=== PATIENT | female | born 1965 | race African-American/Black ===

== ENCOUNTER 2018-02-07 10:51 | Emergency (ER) | payer BC ==
[~2018-02-07] VITALS: Ht 170.2 cm; Wt 90.3 kg
--- NOTE | ~2018-02-07 | EKG ---
[place] [address] 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 : 1965 Requested By: Manisha Blackburn Order Number: [id number] MD: Norris Mariano Measurements Intervals [place] Rate: 71 P: 16 MO: 136 QRS: 6 QRSD: 88 T: -5 QT: 389 QTc: 423 Interpretive Statements Sinus rhythm RSR' in V1 or V2, right VCD or RVH No previous ECG available for comparison Electronically Signed On 02-08-2018 8:17:00 CDT by Norris Mariano [email or web address] <ELECTRONICALLY SIGNED> By: Norris Mariano MD 02/08/18 0817 1107 06 Norris Mariano MD /RAFIA
[~2018-02-07 10:51] MED LIST: ACETAMINOPHEN-1 EAC1; NORCO 5-325 TA1 EACH PO; VIBRAMYCIN 100100 MG PO; ZOFRAN ODT4 MG PO
[2018-02-07 11:52] LABS: CALCIUM 9.8 mg/dL (8.5-10.1)
[2018-02-07 11:55] LABS: ABSOLUTE NEUTROPHILS 7.6 thou/uL (1.4-8.2); BASOPHILS 0.4 % (0.0-2.0); EOSINOPHILS 0.1 % (0.0-3.0); HEMATOCRIT 40.3 % (37.0-47.0); HEMOGLOBIN 13.6 gm/dL (12.0-15.0); MCH 29.5 pg (26.0-34.0); MCHC 33.9 g/dL (28.0-37.0); MCV 87.1 fL (80.0-100.0); MONOCYTES 2.9 % (1.0-8.0); PLATELET COUNT 332 thou/uL (150-400); POLYS 78.6 % (36.0-66.0); RBC 4.62 mil/uL (4.20-5.00); RDW 14.4 % (10.5-14.5); WBC 9.7 thou/uL (4.0-11.0)
[2018-02-07] MEDS ORDERED: TESSALON PERLE100 MG PO (12:41)
[2018-02-07] MEDS ORDERED: VENTOLIN HFA 1818 GM INH (12:41)
[2018-02-07] MEDS ORDERED: CLARITIN-D 121 EAC1 PO (12:41)
[2018-02-07 13:24] VITALS: BP 154/74
== END 2018-02-07 13:33 | disposition home or self-care (01) ==
LOC: ER 10:51
PROVIDERS: Nurse Practitioner Family
DX: J40 Bronchitis, not specified as acute or chronic (principal)

== ENCOUNTER 2021-05-06 12:10 | Emergency (ER) | payer BC ==
[~2021-05-06] VITALS: Ht 170.2 cm; Wt 88.5 kg
[~2021-05-06 12:10] MED LIST changes: +CLARITIN-D 121 EAC1 PO; +TESSALON PERLE100 MG PO; +VENTOLIN HFA 1818 GM INH
[2021-05-06 13:07] LABS: HEMATOCRIT 39.2 % (37.0-47.0); HEMOGLOBIN 12.9 gm/dL (12.0-15.0); MCH 28.6 pg (26.0-34.0); MCHC 32.9 g/dL (28.0-37.0); MCV 86.9 fL (80.0-100.0); RBC 4.51 mil/uL (4.20-5.00); WBC 7.9 thou/uL (4.0-11.0)
[2021-05-06 13:18] LABS: CALCIUM 8.6 mg/dL (8.5-10.1); CREATININE 1.2 mg/dL (0.6-1.0); POTASSIUM 3.6 mmol/L (3.5-5.1)
[2021-05-06 13:28] LABS: ALBUMIN 3.4 g/dL (3.4-5.0); TOTAL BILIRUBIN 0.3 mg/dL (0.2-1.0); TOTAL PROTEIN 7.7 g/dL (6.4-8.2)
[2021-05-06 14:21] LABS: URINE BILIRUBIN NEGATIVE (Negative); URINE BLOOD NEGATIVE (Negative); URINE CLARITY CLEAR; URINE COLOR YELLOW; URINE GLUCOSE-RANDOM* NEGATIVE (Negative); URINE KETONES NEGATIVE (Negative); URINE LEUKOCYTES-REFLEX NEGATIVE (Negative); URINE NITRITE-REFLEX NEGATIVE (Negative); URINE PROTEIN (DIPSTICK) NEGATIVE (Negative); URINE SPECIFIC GRAVITY <= 1.005 (1.005-1.035); URINE UROBILINOGEN 0.2 E.U./dl (0.2-1.0)
--- NOTE | 2021-05-06 14:21 | EKG ---
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[employer] : 1965 Requested By: Coral Granado Order Number: [id number] MD: Wallace Charles Measurements Intervals [place] Rate: 94 P: 37 [place]: 129 QRS: 14 QRSD: 79 T: -27 QT: 332 QTc: 416 Interpretive Statements Sinus rhythm Probable left atrial enlargement Borderline repolarization abnormality Baseline wander in lead(s) V4 Compared to ECG 02/07/2018 11:07:38 Right ventricular hypertrophy no longer present Electronically Signed On 05-06-2021 14:21:09 SALES ENGINEER by Wallace Charles [email or web address] <ELECTRONICALLY SIGNED> By: Wallace Charles MD, [facility] 05/06/21 1421 1252 51 Wallace Charles MD, FACC /EPI
[2021-05-06] MEDS ORDERED: VENTOLIN HFA 1818 GM INH (16:06)
[2021-05-06 16:07] VITALS: BP 135/88
== END 2021-05-06 16:07 | disposition home or self-care (01) ==
LOC: ER 12:10
PROVIDERS: Nurse Practitioner Family
DX: U07.1 COVID-19 (principal); J12.82 Pneumonia due to coronavirus disease 2019; Z79.51 Long term (current) use of inhaled steroids; Z79.899 Other long term (current) drug therapy

== ENCOUNTER 2021-05-10 21:01 | Emergency (ER) | payer BC ==
[~2021-05-10] VITALS: Ht 170.2 cm; Wt 88.5 kg
[2021-05-10 22:10] VITALS: BP 145/88
== END 2021-05-10 23:37 | disposition home or self-care (01) ==
LOC: ER 21:01
DX: U07.1 COVID-19 (principal)